=== PATIENT | female | born 1995 | race American Indian/Alaskan Native ===

== ENCOUNTER 2019-06-28 18:25 | Emergency (ER) | payer MEDICAID ==
--- NOTE | 2019-06-28 19:23 | Event Note ---
ED Screening Note Date of service: 06/28/19 Time: 19:20 ED Screening Note: 9 weeks 5 days pt c/o vaginal bleeding x today following with OBGYN This initial assessment/diagnostic orders/clinical plan/treatment(s) is/are subject to change based on patients health status, clinical progression and re- assessment by fellow clinical providers in the ED. Further treatment and workup at subsequent clinical providers discretion. Patient/guardian urged not to elope from the ED as their condition may be serious if not clinically assessed and managed. Initial orders include: US labs
[2019-06-28 20:50] LABS: Bilirubin,Urine NEG (Negative); Blood,Urine LG (Negative); Color,Urine Yellow (Yellow); Mucus,Urine FEW /HPF; Protein,Urine <15 mg/dL mg/dL (Negative); Urobilinogen,Urine < 2.0 mg/dL (<2.0)
[2019-06-28 20:53] LABS: HCG Qualitative,Urine Positive (Negative)
[2019-06-28 21:00] LABS: Hematocrit 40.1 % (30.3-42.9); Hemoglobin 12.8 gm/dl (10.1-14.3); Mean Corpuscular HGB Conc 32 % (30-34); Mean Corpuscular Volume 85 fl (79-97); Platelet Count 395 K/mm3 (140-440); Red Blood Count 4.72 M/mm3 (3.65-5.03); Red Cell Distribution Width 14.8 % (13.2-15.2)
--- NOTE | 2019-06-28 21:05 | Ultrasound Report ---
US OB <= 14 weeks fetus INDICATION / CLINICAL INFORMATION: vaginal bleeding. COMPARISON: None available. FINDINGS: Intrauterine gestational sac is seen with pole and yolk sac. [place]-rump length is 3.3 cm (10 we eks, 1 day. heart rate is 163. movement was observed by the health information specialist. No uterine lesio ns are seen. Ovaries are not well visualized but appear unremarkable. No adnexal lesions. No free flu id. IMPRESSION: 1. Single viable intrauterine with sonographic gestational age of 10 weeks, 1 day. Signer Name: Matt Mao MD Signed: 06/28/2019 9:01 PM Workstation Name: [id number]
[2019-06-28 21:19] LABS: Alanine Aminotransferase 10 units/L (7-56); Albumin 4.2 g/dL (3.9-5); BUN/Creatinine Ratio 16; Blood Urea Nitrogen 8 mg/dL (7-17); Calcium 9.6 mg/dL (8.4-10.2); Hemolysis Index 5
--- NOTE | 2019-06-28 22:58 | Emergency Department Report ---
ED Female HPI - General Chief complaint: Vaginal Bleeding Stated complaint: 9 WKS HIGH RISK /BLOOD Time Seen by Provider: 06/28/19 19:19 Source: patient Mode of arrival: Ambulatory Limitations: No Limitations - History of Present Illness Initial comments: 24 year old -[place] female presents to the emergency room stating that she is having vaginal spotting started red and then small clots. Patient states she has not gone through any pads only has one pantiliners 1. Patient is 2 para 0. Patient had a stillborn 20 weaker on 11/25/2018. Patient denies any abdominal pain. Last menstrual period was 04/19/2019. Patient denies any strenuous activity. She denies any nausea vomiting abdominal pain pelvic pain back pain. Patient reports she has started vitamins. She has a primary OB Padilla Garsia. Complaint: vaginal bleeding -: This morning Severity scale (0 -10): 0 Are you Now?: Yes Last Menstrual Period: 04/19/19 EDC: 01/24/20 Associated Symptoms: vaginal bleeding - Related Data Sexually active: Yes : 2 Para: 0 Allergies Allergy/AdvReac Type Severity Reaction Status Date / Time No Known Allergies Allergy Unverified 06/28/19 18:40 ED Review of Systems ROS: Stated complaint: 9 WKS HIGH RISK /BLOOD Other details as noted in HPI ED Past Medical Hx - Past Medical History Hx Asthma: Yes - Surgical History Past Surgical History?: No Additional Surgical History: IUD removal - Social History Smoking Status: Never Smoker Substance Use Type: None ED Physical Exam - General Limitations: No Limitations General appearance: alert, in no apparent distress - Head Head exam: Present: atraumatic, normocephalic - Eye Eye exam: Present: normal appearance - Neck Neck exam: Present: normal inspection - Respiratory Respiratory exam: Present: normal lung sounds bilaterally. Absent: respiratory distress - Cardiovascular Cardiovascular Exam: Present: regular rate, normal rhythm. Absent: systolic murmur, diastolic murmur, rubs, gallop - GI/Abdominal GI/Abdominal exam: Present: soft, normal bowel sounds. Absent: distended - Neurological Exam Neurological exam: Present: alert, oriented X3, normal gait - Psychiatric Psychiatric exam: Present: normal affect, normal mood - Skin Skin exam: Present: warm, dry, intact, normal color. Absent: rash ED Course Vital Signs 06/28/19 18:44 Temperature 97.8 F Pulse Rate 98 H Respiratory 18 Rate Blood Pressure 122/75 O2 Sat by Pulse 100 Oximetry ED Medical Decision Making - Lab Data Result diagrams: 06/28/19 19:45 06/28/19 19:45 - Radiology Data Radiology results: report reviewed Patient: ANA BRAR MR#: [id number] : 1995 Acct:[id number] Age/Sex: 24 / F ADM Date: 06/28/19 Loc: ED Attending Dr: Ordering Physician: LAURA ROSS Date of Service: 06/28/19 Procedure(s): US OB <= 14 weeks fetus Accession Number(s): [id number] cc: LAURA ROSS US OB <= 14 weeks fetus INDICATION / CLINICAL INFORMATION: vaginal bleeding. COMPARISON: None available. FINDINGS: Intrauterine gestational sac is seen with pole and yolk sac. [place]-rump l ength is 3.3 cm (10 weeks, 1 day. heart rate is 163. movement was observed by the sonogr apher. No uterine lesions are seen. Ovaries are not well visualized but appear unremarkable. No adnexal lesions. No free fluid. IMPRESSION: 1. Single viable intrauterine with sonographic gestational age of 10 weeks, 1 day. Signer Name: Matt Mao MD Signed: 06/28/2019 9:01 PM Workstation Name: [id number] Transcribed By: HAMIDA Dictated By: Matt Mao MD Electronically Authenticated By: Matt Mao MD Signed Date/Time: 06/28/192100 DD/ 99 TD/TT: - Medical Decision Making 24 year old -[place] female presents to the emergency room stating that she is having vaginal spotting started red and then small clots. Patient states she has not gone through any pads only has one pantiliners 1. Patient is 2 para 0. Patient had a stillborn 20 weaker on 11/25/2018. Patient denies any abdominal pain. Last menstrual period was 04/19/2019. Patient denies any strenuous activity. She denies any nausea vomiting abdominal pain pelvic pain back pain. Patient reports she has started vitamins. She has a primary OB Padilla Garsia. Ultrasound shows a viable . Labs are stable. Patient is to follow-up with her OB provider. Critical care attestation.: If time is entered above; I have spent that time in minutes in the direct care of this critically ill patient, excluding procedure time. ED Disposition Clinical Impression: Threatened miscarriage in early Disposition: DC-01 TO HOME OR SELFCARE Is pt being admited?: No Does the pt Need Aspirin: No Condition: Stable Instructions: Threatened Miscarriage (ED) Additional Instructions: Ultrasound shows should have a 10 week fetus. Follow up with her primary medical chemist
[2019-06-29 01:18] VITALS: BP 118/70
== END 2019-06-29 00:50 | disposition home or self-care (01) ==
LOC: ED 18:25
DX: O20.0 Threatened abortion (principal); Z3A.10 10 weeks gestation of pregnancy
CPT/HCPCS: 36415; 76801; 80053; 81001; 81025; 84702; 85025; 86850; 86900; 86901

== ENCOUNTER 2020-03-30 02:00 | Emergency (ER) | payer MEDICAID ==
[2020-03-30 02:07] VITALS: BP 146/98
== END 2020-03-30 07:55 | disposition left against medical advice (07) ==
LOC: ED 02:00
DX: M79.89 Other specified soft tissue disorders (principal); Z53.21 Procedure and treatment not carried out due to patient leaving prior to being seen by health care provider

== ENCOUNTER 2020-08-25 20:23 | Emergency (ER) | payer MEDICAID ==
[2020-08-25 20:54] VITALS: BP 119/82
[2020-08-25 21:35] LABS: Basophils % (Auto) 0.4 % (0.0-1.8); Eosinophils # (Auto) 0.1 K/mm3 (0.0-0.4); Eosinophils % (Auto) 0.8 % (0.0-4.3); Hematocrit 35.5 % (30.3-42.9); Hemoglobin 11.6 gm/dl (10.1-14.3); Lymphocytes # (Auto) 2.8 K/mm3 (1.2-5.4); Lymphocytes % (Auto) 23.6 % (13.4-35.0); Mean Corpuscular HGB Conc 33 % (30-34); Mean Corpuscular Volume 83 fl (79-97); Monocytes # (Auto) 0.8 K/mm3 (0.0-0.8); Monocytes % (Auto) 6.4 % (0.0-7.3); Platelet Count 376 K/mm3 (140-440); Red Blood Count 4.29 M/mm3 (3.65-5.03)
[2020-08-25 22:43] LABS: Alanine Aminotransferase 14 units/L (7-56); Albumin 4.2 g/dL (3.9-5); Blood Urea Nitrogen 6 mg/dL (7-17); Calcium 9.5 mg/dL (8.4-10.2); Hemolysis Index 1
[2020-08-25 22:53] LABS: Bilirubin,Urine NEG (Negative); Blood,Urine SM (Negative); Color,Urine Yellow (Yellow); Protein,Urine <15 mg/dL mg/dL (Negative); Urobilinogen,Urine < 2.0 mg/dL (<2.0)
[2020-08-25 22:57] LABS: BUN/Creatinine Ratio 12
--- NOTE | 2020-08-25 23:04 | Ultrasound Report ---
ULTRASOUND OBSTETRIC REASON FOR EXAM: vaginal bleeding TECHNIQUE: Transabdominal and transvaginal ultrasound was performed to evaluate a first trimester pre gnancy. COMPARISON: None available. FINDINGS: FINDINGS: The pole, yolk sac, and gestational sac are normal in appearance. [place]-rump length: 48.1 mm. This corresponds with a gestational age of 11 weeks 4 days. heart rate: 160 bpm Perigestational hemorrhage: No evidence of perigestational hemorrhage on the provided images. MATERNAL FINDINGS: The uterus demonstrates an otherwise unremarkable sonographic appearance. The cervix measures 3.3 cm and is cervical os is closed. The right ovary demonstrates a normal sonographic appearance. The left ovary demonstrates a normal sonographic appearance. Cul-de-sac: There is no free fluid. IMPRESSION: Viable intrauterine . Gestational age is 11 weeks 4 days by ultrasound, consistent with the patient's LMP. Recommend clinical screening and ultrasound follow-up in the second trimester to scree n for anomalies. Signer Name: Willi Del Rosario MD Signed: 08/25/2020 11:00 PM Workstation Name: [id number]
--- NOTE | 2020-08-25 23:30 | Emergency Department Report ---
ED General Adult HPI - General Chief complaint: Vaginal Bleeding Stated complaint: 12 WKS PREG/BLEEDING Time Seen by Provider: 08/25/20 20:58 Source: patient Mode of arrival: Ambulatory Limitations: No Limitations - History of Present Illness Initial comments: 25 yo AA female patient presents with complaints of vaginal bleeding in starting this morning. Patient states there was mild bright red blood that resolved after a couple of hours. She denies any abdominal pain, nausea/vomiting/diarrhea/constipation, hematuria/dysuria/urinary frequency, vaginal discharge, dyspareunia, or fever/chills/sweats. Patient states she is approximately 12 weeks and currently following with Dr. Rahman. Patient has G3, . She reports she has had an ultrasound and has not had any complications thus far. Past medical history includes asthma. - Related Data Allergies Allergy/AdvReac Type Severity Reaction Status Date / Time nickel Allergy Unknown Verified 03/30/20 02:05 ED Review of Systems ROS: Stated complaint: 12 WKS PREG/BLEEDING Other details as noted in HPI Constitutional: denies: chills, fever, malaise Respiratory: denies: shortness of breath Cardiovascular: denies: edema Gastrointestinal: denies: abdominal pain, nausea, vomiting, diarrhea, constipation Genitourinary: denies: urgency, dysuria, frequency, hematuria, discharge, dyspareunia Musculoskeletal: denies: back pain Skin: denies: change in color Hematological/Lymphatic: denies: easy bleeding, easy bruising ED Past Medical Hx - Past Medical History Previous Medical History?: Yes Hx Hypertension: Yes (not on meds with preg) Hx Asthma: Yes - Surgical History Past Surgical History?: No Additional Surgical History: IUD removal - Social History Smoking Status: Never Smoker Substance Use Type: None ED Physical Exam - General Limitations: No Limitations General appearance: alert, in no apparent distress - Head Head exam: Present: atraumatic, normocephalic - Eye Eye exam: Present: normal appearance. Absent: scleral icterus - Respiratory Respiratory exam: Absent: respiratory distress - Cardiovascular Cardiovascular Exam: Present: regular rate - GI/Abdominal GI/Abdominal exam: Present: soft, normal bowel sounds. Absent: distended, tenderness, guarding, rebound, rigid - Back Exam Back exam: Present: full ROM - Neurological Exam Neurological exam: Present: alert, oriented X3, normal gait - Psychiatric Psychiatric exam: Present: normal affect, normal mood - Skin Skin exam: Present: warm, dry, intact, normal color. Absent: rash, diaphoretic ED Course Vital Signs 08/25/20 20:48 Temperature 98.9 F Pulse Rate 92 H Respiratory 16 Rate Blood Pressure 119/82 O2 Sat by Pulse 100 Oximetry ED Medical Decision Making - Lab Data Result diagrams: 08/25/20 21:08 08/25/20 21:08 Lab Results 08/25/20 08/25/20 08/25/20 Range/Units 21:08 21:08 21:08 WBC 12.0 H (4.5-11.0) K/mm3 RBC 4.29 (3.65-5.03) M/mm3 Hgb 11.6 (10.1-14.3) gm/dl Hct 35.5 (30.3-42.9) % MCV 83 (79-97) fl MCH 27 L (28-32) pg MCHC 33 (30-34) % RDW 18.0 H (13.2-15.2) % Plt Count 376 (140-440) K/mm3 Lymph % (Auto) 23.6 (13.4-35.0) % [place] % (Auto) 6.4 (0.0-7.3) % Eos % (Auto) 0.8 (0.0-4.3) % Baso % (Auto) 0.4 (0.0-1.8) % Lymph # (Auto) 2.8 (1.2-5.4) K/mm3 [place] # (Auto) 0.8 (0.0-0.8) K/mm3 Eos # (Auto) 0.1 (0.0-0.4) K/mm3 Baso # (Auto) 0.0 (0.0-0.1) K/mm3 Seg Neutrophils % 68.8 (40.0-70.0) % Seg Neutrophils # 8.3 H (1.8-7.7) K/mm3 Sodium (137-145) mmol/L Potassium (3.6-5.0) mmol/L Chloride (98-107) mmol/L Carbon Dioxide (22-30) mmol/L Anion Gap mmol/L BUN (7-17) mg/dL Creatinine (0.6-1.2) mg/dL Estimated GFR ml/min BUN/Creatinine Ratio % Glucose (65-100) mg/dL Calcium (8.4-10.2) mg/dL Total Bilirubin (0.1-1.2) mg/dL AST (5-40) units/L ALT (7-56) units/L Alkaline Phosphatase (35-129) units/L Total Protein (6.3-8.2) g/dL Albumin (3.9-5) g/dL Albumin/Globulin Ratio % HCG, Quant 87149 H (0-4) mIU/mL Urine Color (Yellow) Urine Turbidity (Clear) Urine pH (5.0-7.0) Ur Specific [place] (1.003-1.030) Urine Protein (Negative) mg/dL Urine Glucose (UA) (Negative) mg/dL Urine Ketones (Negative) mg/dL Urine Blood (Negative) Urine Nitrite (Negative) Urine Bilirubin (Negative) Urine Urobilinogen (<2.0) mg/dL Ur Leukocyte Esterase (Negative) Urine WBC (Auto) (0.0-6.0) /HPF Urine RBC (Auto) (0.0-6.0) /HPF U Epithel Cells (Auto) (0-13.0) /HPF Blood Type AB POSITIVE 08/25/20 08/25/20 Range/Units 21:08 Unknown WBC (4.5-11.0) K/mm3 RBC (3.65-5.03) M/mm3 Hgb (10.1-14.3) gm/dl Hct (30.3-42.9) % MCV (79-97) fl MCH (28-32) pg MCHC (30-34) % RDW (13.2-15.2) % Plt Count (140-440) K/mm3 Lymph % (Auto) (13.4-35.0) % Cherry % (Auto) (0.0-7.3) % Eos % (Auto) (0.0-4.3) % Baso % (Auto) (0.0-1.8) % Lymph # (Auto) (1.2-5.4) K/mm3 Cherry # (Auto) (0.0-0.8) K/mm3 Eos # (Auto) (0.0-0.4) K/mm3 Baso # (Auto) (0.0-0.1) K/mm3 Seg Neutrophils % (40.0-70.0) % Seg Neutrophils # (1.8-7.7) K/mm3 Sodium 135 L (137-145) mmol/L Potassium 3.7 (3.6-5.0) mmol/L Chloride 101.7 (98-107) mmol/L Carbon Dioxide 24 (22-30) mmol/L Anion Gap 13 mmol/L BUN 6 L (7-17) mg/dL Creatinine 0.5 L (0.6-1.2) mg/dL Estimated GFR > 60 ml/min BUN/Creatinine Ratio 12 % Glucose 73 (65-100) mg/dL Calcium 9.5 (8.4-10.2) mg/dL Total Bilirubin < 0.20 (0.1-1.2) mg/dL AST 18 (5-40) units/L ALT 14 (7-56) units/L Alkaline Phosphatase 70 (35-129) units/L Total Protein 7.2 (6.3-8.2) g/dL Albumin 4.2 (3.9-5) g/dL Albumin/Globulin Ratio 1.4 % HCG, Quant (0-4) mIU/mL Urine Color Yellow (Yellow) Urine Turbidity Clear (Clear) Urine pH 6.0 (5.0-7.0) Ur Specific [place] 1.016 (1.003-1.030) Urine Protein <15 mg/dl (Negative) mg/dL Urine Glucose (UA) Neg (Negative) mg/dL Urine Ketones Neg (Negative) mg/dL Urine Blood Sm (Negative) Urine Nitrite Neg (Negative) Urine Bilirubin Neg (Negative) Urine Urobilinogen < 2.0 (<2.0) mg/dL Ur Leukocyte Esterase Neg (Negative) Urine WBC (Auto) 1.0 (0.0-6.0) /HPF Urine RBC (Auto) 4.0 (0.0-6.0) /HPF U Epithel Cells (Auto) < 1.0 (0-13.0) /HPF Blood Type - Radiology Data Radiology results: report reviewed FINDINGS: The pole, yolk sac, and gestational sac are normal in appearance. [place]-rump length: 48.1 mm. This corresponds with a gestational age of 11 weeks 4 days. heart rate: 160 bpm Perigestational hemorrhage: No evidence of perigestational hemorrhage on the provided images. MATERNAL FINDINGS: The uterus demonstrates an otherwise unremarkable sonographic appearance. The cervix measures 3.3 cm and is cervical os is closed. The right ovary demonstrates a normal sonographic appearance. The left ovary demonstrates a normal sonographic appearance. Cul-de-sac: There is no free fluid. IMPRESSION: Viable intrauterine . Gestational age is 11 weeks 4 days by ultrasound, consistent with the patient's LMP. Recommend clinical screening and ultrasound follow-up in the second trimester to screen for anomalies. - Medical Decision Making 25 yo AA female patient presents with complaints of vaginal bleeding in pregn [place] starting this morning. Patient states there was mild bright red blood that resolved after a couple of hours. She denies any abdominal pain, nausea/vomiting/diarrhea/constipation, hematuria/dysuria/urinary frequency, vaginal discharge, dyspareunia, or fever/chills/sweats. Patient states she is approximately 12 weeks and currently following with Dr. Rahman. She reports she has had an ultrasound and has not had any complications thus far. Past medical history includes asthma. No significant abnormalities noted on CBC, CMP, or UA. Ultrasound shows viable 11-week 4-day IUP without any abnormalities. Recommend patient follows up with her [facility] in 2 to 3 days. Her vitals are normal, she is well-appearing, she is stable for discharge home. Discussed signs and symptoms that should prompt immediate return to the emergency department in detail with patient who verbalized understanding. Critical care attestation.: If time is entered above; I have spent that time in minutes in the direct care of this critically ill patient, excluding procedure time. ED Disposition Clinical Impression: Vaginal bleeding during Disposition: DC-01 TO HOME OR SELFCARE Is pt being admited?: No Condition: Stable Instructions: Vaginal Bleeding During , First Trimester, Activity Restriction During Additional Instructions: Please follow up with your OBGYN in 2-3 days
== END 2020-08-25 23:40 | disposition home or self-care (01) ==
LOC: ED 20:23
DX: O20.8 Other hemorrhage in early pregnancy (principal); O16.1 Unspecified maternal hypertension, first trimester; O99.511 Diseases of the respiratory system complicating pregnancy, first trimester; J45.909 Unspecified asthma, uncomplicated; Z3A.12 12 weeks gestation of pregnancy; Z88.8 Allergy status to other drugs, medicaments and biological substances; Z98.890 Other specified postprocedural states
CPT/HCPCS: 36415; 76801; 80053; 81001; 84702; 85025; 86900; 86901